=== PATIENT | female | born 1945 | race Caucasian/White ===

== ENCOUNTER 2016-12-25 20:18 | Emergency (ER) | payer OTHER ==
[~2016-12-25 20:18] MED LIST: ASPI81TA82 PO; ATOR10TA PO; CALC-137 PO; DIOV160T8 PO; ENOX80P SQ; L-LY500T4 PO; MOBI15TA PO; MULT-65 PO; ULTR50TA PO
[2016-12-25 20:31] VITALS: BP 156/79; PULSE 115; RESP 20; TEMP 101.9; O2SAT 95
[2016-12-25] MEDS ORDERED: SODIUM CHLOR 0.9% 1000 ML INJ 1,000 ML IV ONE ×2 (20:40→22:30)
[2016-12-25] MEDS ORDERED: SODIUM CHLORIDE 0.9% FLUSH 5 ML FLUSH IVF PRN (20:45)
[2016-12-25] MEDS ORDERED: ACETAMINOPHEN 650 MG SUPP RECTAL ONE (20:45)
[2016-12-25] MEDS ORDERED: ONDANSETRON HCL 4 MG/2 ML VIAL IVP ONE (20:45)
--- NOTE | 2016-12-25 20:57 | PD ---
HPI . Fevers and chills with vomiting Chief Complaint: GI Complaint Time Seen by Provider: 20:40 Travel History International Travel<30 days: No Contact w/Intl Traveler<30days: No Traveled to known affect area: No History of Present Illness HPI Patient presents with the onset of fevers and chills associated with vomiting. She states that she developed chills at about 6 PM and it was followed shortly thereafter by vomiting. She reports 3 episodes of emesis. The emesis has been food substance. She has not yet had any diarrhea. She denies any abdominal pain. She denies any associated urinary symptoms. She does not have a cough, chest pain or difficulty breathing. [id number]:GI DURATION: 3 hours TIMING: Continuous MODIFYING FACTORS: No significant associated medical problems ASSOCIATED SYMPTOMS: No other reported associated symptoms PFSH Past Medical History High Cholesterol: Yes Hypertension: Yes Menopausal: Yes Social History Alcohol Use: No Tobacco Use: No Substance Use: No Allergies-Medications (Allergen,Severity, Reaction): Coded Allergies: No Known Allergies (Verified , 12/25/16) Reported Meds & Prescriptions Reported Meds & Active Scripts Active Phenergan (Promethazine HCl) 25 Mg Tab 25 Mg PO Q6H PRN Lovenox (Enoxaparin Sodium) Enoxaparin 80 mg Inj 80 Mg SQ BID Reported L-Lysine (Lysine) 500 Mg Tab 500 Mg PO DAILY Multi-Vitamin Daily (Multivitamins) Daily Tab 1 Tab PO DAILY Calcium 600 (Calcium Carbonate) Tab 1 Tab PO BID Aspir-81 (Aspirin) 81 Mg Tab 81 Mg PO DAILY Diovan Hct 160/25 (HCTZ/Valsartan) Tab 0.5 Tab PO DAILY Atorvastatin 10 mg (Atorvastatin Calcium) 10 Mg Tab 1 Tab PO HS 30 Days Ultram (Tramadol HCl) 50 Mg Tab 50 Mg PO Q6 PRN Mobic (Meloxicam) 15 Mg Tab 15 Mg PO DAILY Review of Systems Except as stated in HPI: all other systems reviewed are Neg General / Constitutional: Positive: Fever, Chills Cardiovascular: No: Chest Pain or Discomfort Respiratory: No: Cough, Shortness of Breath Gastrointestinal: Positive: Nausea, Vomiting, No: Diarrhea, Abdominal Pain Genitourinary: No: Urgency, Frequency, Dysuria Physical Exam Narrative GENERAL: This is a healthy-appearing 71-year-old female who is not in any acute distress. SKIN: Warm and dry. HEAD: Atraumatic. Normocephalic. EYES: Pupils equal and round. ENT: No nasal bleeding or discharge. Mucous membranes pink and moist. NECK: Trachea midline. Neck is supple. CARDIOVASCULAR: Regular rate and rhythm. Heart sounds are normal. RESPIRATORY: No accessory muscle use. Lungs are clear with full air movement throughout. GASTROINTESTINAL: Abdomen soft, non-tender, nondistended. Normal bowel sounds. MUSCULOSKELETAL: No obvious deformities. No edema. NEUROLOGICAL: Awake and alert. No obvious cranial nerve deficits. Motor grossly within normal limits. Normal speech. PSYCHIATRIC: Appropriate mood and affect; insight and judgment normal. Data Data Last Documented VS Vital Signs Date Time Temp Pulse Resp B/P Pulse Ox O2 Delivery O2 Flow Rate FiO2 12/25/16 23:25 99.1 84 18 124/56 95 Room Air Orders Complete Blood Count With Diff (12/25/16 20:40) Basic Metabolic Panel (Bmp) (12/25/16 20:40) Urinalysis - C+S If Indicated (12/25/16 20:40) Iv Access Insert/Monitor (12/25/16 20:40) Ondansetron Inj (Zofran Inj) (12/25/16 20:45) Sodium Chlor 0.9% 1000 Ml Inj (Ns 1000 M (12/25/16 20:40) Sodium Chloride 0.9% Flush (Ns Flush) (12/25/16 20:45) Blood Culture (12/25/16 20:40) Acetaminophen Supp (Tylenol Supp) (12/25/16 20:45) Sodium Chlor 0.9% 1000 Ml Inj (Ns 1000 M (12/25/16 22:30) Labs Laboratory Tests Test 12/25/16 12/25/16 21:00 22:30 White Blood Count 7.2 TH/MM3 Red Blood Count 4.25 MIL/MM3 Hemoglobin 12.8 GM/DL Hematocrit 37.7 % Mean Corpuscular Volume 88.7 FL Mean Corpuscular Hemoglobin 30.1 PG Mean Corpuscular Hemoglobin 33.9 % Concent Red Cell Distribution Width 11.9 % Platelet Count 249 TH/MM3 Mean Platelet Volume 8.5 FL Neutrophils (%) (Auto) 86.2 % Lymphocytes (%) (Auto) 10.2 % Monocytes (%) (Auto) 1.9 % Eosinophils (%) (Auto) 0.3 % Basophils (%) (Auto) 1.4 % Neutrophils # (Auto) 6.3 TH/MM3 Lymphocytes # (Auto) 0.7 TH/MM3 Monocytes # (Auto) 0.1 TH/MM3 Eosinophils # (Auto) 0.0 TH/MM3 Basophils # (Auto) 0.1 TH/MM3 CBC Comment DIFF FINAL Differential Comment Sodium Level 142 MEQ/L Potassium Level 3.7 MEQ/L Chloride Level 105 MEQ/L Carbon Dioxide Level 26.8 MEQ/L Anion Gap 10 MEQ/L Blood Urea Nitrogen 20 MG/DL Creatinine 0.90 MG/DL Estimat Glomerular Filtration 62 ML/MIN Rate Random Glucose 109 MG/DL Calcium Level 9.4 MG/DL Urine Collection Type VOIDED Urine Color YELLOW Urine Turbidity CLEAR Urine pH 7.5 Urine Specific [place] 1.009 Urine Protein NEG mg/dL Urine Glucose (UA) NEG mg/dL Urine Ketones NEG mg/dL Urine Occult Blood NEG Urine Nitrite NEG Urine Bilirubin NEG Urine Leukocyte Esterase NEG Urine Squamous Epithelial 0-2 /hpf Cells Urine Amorphous Sediment RARE Microscopic Urinalysis Comment CULT NOT INDICATED MDM Medical Decision Making Medical Screen Exam Complete: Yes Emergency Medical Condition: Yes Medical Record Reviewed: Yes (old records reveal a history of hypertension, hyperlipidemia, previous DVT.) Differential Diagnosis Differential diagnosis includes but is not limited to viral gastritis, food poisoning, pancreatitis, pneumonia, hepatitis, acute coronary syndrome, Narrative Course Patient presents with the acute onset of fever and vomiting. I have ordered some IV fluids, Zofran and Tylenol. Labs and UA have been ordered. CBC & BMP Diagram 12/25/16 21:00 UA is negative Diagnosis Primary Impression: Fever Qualified Code: R50.9 - Fever, unspecified fever cause Additional Impression: Vomiting Qualified Code: R11.2 - Non-intractable vomiting with nausea, unspecified vomiting type Patient Instructions: Acute Nausea and Vomiting (DC), Fever in Adults (ED), General Instructions Med/Other Pt SpecificInfo: Prescription(s) given Scripts Promethazine (Phenergan)25 Mg Tab25 Mg PO Q6H PRN (Nausea/Vomiting) #10 TAB Ref 0 Prov:Chiqui Marie MD 12/25/16 Disposition: 01 DISCHARGE HOME Condition: Stable Chiqui Marie MD Dec 25, 2016 20:57
[2016-12-25 21:00] VITALS: BP 140/57; PULSE 93; RESP 20; TEMP 101; O2SAT 96
[2016-12-25 21:23] LABS: AUTOMATED NEUTROPHIL # 6.3 TH/MM3 (1.8-7.7); BASOPHIL # 0.1 TH/MM3 (0-0.2); BASOPHIL % 1.4 % (0.0-2.0); EOSINOPHIL % 0.3 % (0.0-4.0); HEMATOCRIT 37.7 % (35.0-46.0); HEMO FLAGS DIFF FINAL; LYMPH % 10.2 % (9.0-44.0); LYMPHOCYTE # 0.7 TH/MM3 (1.0-4.8); MEAN CELL VOLUME 88.7 FL (80.0-100.0); MEAN CORPUSCULAR HEMOGLOBIN 30.1 PG (27.0-34.0); MEAN CORPUSCULAR HGB CONC 33.9 % (32.0-36.0); MONO % 1.9 % (0.0-8.0); NEUT % 86.2 % (16.0-70.0); PLATELET COUNT 249 TH/MM3 (150-450); RED BLOOD COUNT 4.25 MIL/MM3 (4.00-5.30); RED CELL DISTRIBUTION WIDTH 11.9 % (11.6-17.2); WHITE BLOOD COUNT 7.2 TH/MM3 (4.0-11.0)
[2016-12-25 21:34] LABS: POTASSIUM 3.7 MEQ/L (3.5-5.1)
[2016-12-25 21:37] LABS: BICARBONATE 26.8 MEQ/L (21.0-32.0)
[2016-12-25 22:15] VITALS: BP 138/56; PULSE 90; RESP 18; TEMP 99.9; O2SAT 97
[2016-12-25] MEDS ORDERED: PROM25TA5 PO (22:30)
[2016-12-25 23:25] VITALS: BP 124/56; PULSE 84; RESP 18; TEMP 99.1; O2SAT 95
[2016-12-25 23:46] LABS: BLOOD, URINE NEG (NEG); GLUCOSE,URINE NEG (NEG); KETONE, URINE NEG (NEG); NITRITE,URINE NEG (NEG); PH, URINE 7.5 (5.0-8.5)
[2016-12-25 23:59] LABS: METHOD OF COLLECTION VOIDED; URINE COLOR YELLOW (YELLW/STRAW)
[2016-12-26] LABS: COMMENT (UR) CULT NOT INDICATED; CULTURE IF INDICATED CULT NOT INDICATED; SQUAMOUS EPITHELIAL CELL URINE 0-2 /hpf (0-5)
[2016-12-26] MEDS ORDERED: ATOR10TA15 PO (00:26)
[2016-12-26] MEDS ORDERED: CALC1TAB87 PO (00:26)
[2016-12-26] MEDS ORDERED: ASPI1TAB69 PO (00:26)
[2016-12-26] MEDS ORDERED: CINN500C PO (00:28)
[2016-12-26] MEDS ORDERED: CHRO1CAP4 PO (00:28)
[2016-12-26] MEDS ORDERED: MULT-135 PO (00:28)
[2016-12-26 00:30] VITALS: BP 127/59; PULSE 82; RESP 18; TEMP 99.5; O2SAT 96
== END 2016-12-26 00:47 | disposition home or self-care (01) ==
LOC: PHED 20:18
DX: R50.9 Fever, unspecified (principal); R11.2 Nausea with vomiting, unspecified; E78.00 Pure hypercholesterolemia, unspecified; I10 Essential (primary) hypertension
CPT/HCPCS: 80048; 81001; 85025; 87040; 96361; 96374; 99284; J2405; J7030